=== PATIENT | male | born 1995 | race Caucasian/White ===

== ENCOUNTER 2018-05-29 05:10 | Emergency (ER) | payer MEDICAID ==
[~2018-05-29] VITALS: Ht 180.3 cm; Wt 96.2 kg
[2018-05-29 05:15] VITALS: Ht 180.3 cm; Wt 96.2 kg
[2018-05-29 06:18] VITALS: BP 135/85
== END 2018-05-29 06:20 | disposition home or self-care (01) ==
LOC: ED 05:10
DX: J03.90 Acute tonsillitis, unspecified (principal)
CPT/HCPCS: J0561; J1100; J1885; J7030

== ENCOUNTER 2020-11-25 16:31 | Emergency (ER) | payer SELFPAY ==
[~2020-11-25] VITALS: Ht 180.3 cm; Wt 102.1 kg
[2020-11-25 16:45] VITALS: Ht 180.3 cm; Wt 102.1 kg
[2020-11-25 19:42] VITALS: BP 123/78
== END 2020-11-25 19:42 | disposition home or self-care (01) ==
LOC: ED 16:31
DX: S01.01XA Laceration without foreign body of scalp, initial encounter (principal); S60.221A Contusion of right hand, initial encounter; S70.02XA Contusion of left hip, initial encounter; S30.810A Abrasion of lower back and pelvis, initial encounter; Z90.89 Acquired absence of other organs; V86.59XA Driver of other special all-terrain or other off-road motor vehicle injured in nontraffic accident, initial encounter; Y93.I9 Activity, other involving external motion; Y92.89 Other specified places as the place of occurrence of the external cause; Y99.8 Other external cause status
CPT/HCPCS: 90715

== ENCOUNTER 2020-12-03 10:54 | Emergency (ER) | payer SELFPAY ==
[~2020-12-03] VITALS: Ht 180.3 cm; Wt 102.5 kg
[2020-12-03 11:11] VITALS: Ht 180.3 cm; Wt 102.5 kg
[2020-12-03 11:21] VITALS: BP 116/74
== END 2020-12-03 11:21 | disposition home or self-care (01) ==
LOC: ED 10:54
DX: S01.01XD Laceration without foreign body of scalp, subsequent encounter (principal); S60.511D Abrasion of right hand, subsequent encounter; S00.31XD Abrasion of nose, subsequent encounter; X58.XXXD Exposure to other specified factors, subsequent encounter